=== PATIENT | female | born 1990 | race Caucasian/White ===

== ENCOUNTER 2016-11-10 16:09 | Emergency (ER) | payer OTHER ==
[~2016-11-10] VITALS: Ht 154.9 cm; Wt 86.2 kg
[2016-11-10 16:23] VITALS: BP 136/81
== END 2016-11-10 18:06 | disposition home or self-care (01) ==
LOC: ED 16:09
DX: S61.216A Laceration without foreign body of right little finger without damage to nail, initial encounter (principal); I10 Essential (primary) hypertension; W22.8XXA Striking against or struck by other objects, initial encounter; Y93.89 Activity, other specified; Y92.89 Other specified places as the place of occurrence of the external cause; Y99.8 Other external cause status
CPT/HCPCS: A4570

== ENCOUNTER 2017-07-28 19:16 | Emergency (ER) | payer OTHER ==
[~2017-07-28] VITALS: Ht 154.9 cm; Wt 85.3 kg
[2017-07-28 20:29] VITALS: BP 135/86; Ht 154.9 cm; Wt 85.3 kg
== END 2017-07-28 21:18 | disposition left against medical advice (07) ==
LOC: ED 19:16
DX: Z53.21 Procedure and treatment not carried out due to patient leaving prior to being seen by health care provider (principal)